=== PATIENT | female | born 1990 | race Caucasian/White ===

== ENCOUNTER 2022-11-23 09:26 | Outpatient (CLI) | payer BC, SELFPAY | END 2022-11-23 09:27 | disposition home or self-care (01) | LOC: LAB 09:30 | PROVIDERS: Obstetrics & Gynecology; Visit Provider Registered Nurse | DX: O46.90 Antepartum hemorrhage, unspecified, unspecified trimester (principal) | CPT/HCPCS: 36415; 84702; 86850; 86900; 86901 ==

== ENCOUNTER 2022-11-25 09:18 | Outpatient (CLI) | payer BC, SELFPAY | END 2022-11-25 09:19 | disposition home or self-care (01) | PROVIDERS: Visit Provider Obstetrics & Gynecology | DX: Z34.90 Encounter for supervision of normal pregnancy, unspecified, unspecified trimester (principal) | CPT/HCPCS: 84702 ==

== ENCOUNTER 2022-11-29 13:56 | Outpatient (CLI) | payer BC, SELFPAY ==
--- NOTE | 2022-11-29 14:00 | CRLHL7_ITS ---
For Patients: As a result of the Cures Act, medical imaging exams and procedure reports are released immediately into your electronic medical record. You may view this report before your referring provider. If you have questions, please contact your health care provider. INDICATION: BLEEDING IN 1ST TRIMESTER COMPARISON: None. TECHNIQUE: Real-time justin-scale imaging of the pelvis was performed. FINDINGS: Sonographic imaging demonstrates a single living intrauterine gestation. The embryo demonstrates a regular cardiac rate measuring 120 beats per minute. The embryo`s crown-rump length measurement of 0.6 cm corresponds to a gestational age of 6 weeks 3 days with a sonographic due date of 07/21/2022. There is a normal-appearing yolk sac. There are no gross abnormalities noted within the embryo at this early state of development. The gestational sac has a normal appearance. There is no evidence of a perigestational hemorrhage. The amount of fluid within the sac appears appropriate for gestational age. The cervix is closed. The myometrium appears normal. The ovaries are of normal size. There are no suspicious fluid collections noted in the cul-de-sac. IMPRESSION: Normal first trimester OB ultrasound exam. Gestational age calculated at 6 weeks 3 days with a sonographic due date of 07/21/2022. Dictated by Baldo Espinal MD @ 11/29/2022 2:56:21 PM (Electronically Signed)
== END 2022-11-29 13:57 | disposition home or self-care (01) ==
LOC: US 13:56
PROVIDERS: Visit Provider Obstetrics & Gynecology
DX: O20.9 Hemorrhage in early pregnancy, unspecified (principal); Z3A.01 Less than 8 weeks gestation of pregnancy
CPT/HCPCS: 76817; 87491; 87591

== ENCOUNTER 2022-12-17 14:47 | Outpatient (CLI) | payer BC, SELFPAY ==
--- NOTE | 2022-12-17 15:00 | CRLHL7_ITS ---
For Patients: As a result of the Century Cures Act, medical imaging exams and procedure reports are released immediately into your electronic medical record. You may view this report before your referring provider. If you have questions, please contact your health care provider. INDICATION: First trimester scan, establish dates. COMPARISON: 11/29/2022 TECHNIQUE: Real-time justin-scale imaging of the pelvis was performed. FINDINGS: Sonographic imaging demonstrates a single living intrauterine gestation. The embryo demonstrates a regular cardiac rate measuring 173 beats per minute. The embryo`s crown-rump length measurement of 2.2 cm corresponds to a gestational age of 9 weeks 0 days with a sonographic due date of 07/22/2023. There is a normal-appearing yolk sac. There are no gross abnormalities noted within the embryo at this early state of development. The gestational sac has a normal appearance. There is no evidence of a perigestational hemorrhage. The amount of fluid within the sac appears appropriate for gestational age. The cervix is closed. The myometrium appears normal. Corpus luteal cyst right ovary. Left ovary not visualized. There are no suspicious fluid collections noted in the cul-de-sac. IMPRESSION: Normal first trimester OB ultrasound exam. Gestational age calculated at 9 weeks 0 days with a sonographic due date of 07/22/2023. Dictated by Baldo Espinal MD @ 12/17/2022 3:59:45 PM (Electronically Signed)
== END 2022-12-17 14:48 | disposition home or self-care (01) ==
LOC: US 14:48
PROVIDERS: Visit Provider Registered Nurse
DX: Z34.91 Encounter for supervision of normal pregnancy, unspecified, first trimester (principal); Z3A.09 9 weeks gestation of pregnancy
CPT/HCPCS: 76817; 86703; 86803; 86850; 86900; 86901; 87086; 87340

== ENCOUNTER 2022-12-17 16:11 | Outpatient (CLI) | payer BC, SELFPAY | END 2022-12-17 16:12 | disposition home or self-care (01) | PROVIDERS: Visit Provider Registered Nurse | DX: Z34.91 Encounter for supervision of normal pregnancy, unspecified, first trimester (principal); Z3A.09 9 weeks gestation of pregnancy | CPT/HCPCS: 86592; 86703; 86762; 86787; 86803; 86850; 86900; 86901; 87086; 87340 ==

== ENCOUNTER 2023-01-11 18:14 | Emergency (ER) | payer BC, SELFPAY ==
[2023-01-11 18:17] VITALS: BP 144/78; PULSE 97; RESP 18; TEMP 36.2; O2SAT 100; BMI 28.1
--- NOTE | 2023-01-11 18:33 | CRLHL7_ITS ---
For Patients: As a result of the Cures Act, medical imaging exams and procedure reports are released immediately into your electronic medical record. You may view this report before your referring provider. If you have questions, please contact your health care provider. INDICATION: Vaginal bleeding at 12 weeks in . TECHNIQUE: Transabdominal obstetrical ultrasound. COMPARISON: December 17, 2022. FINDINGS: There is a single living intrauterine with a heart rate of 154 beats per minute and crown-rump length of 7.1 cm which would correspond to a 13 week 2 day gestation with a sonographic due date of July 17, 2023. The yolk sac is not seen. The gestational sac is within normal limits. The ovaries are unremarkable with the right measuring 3.4 x 1.8 x 2.8 cm and the left measuring 3.1 x 1.1 x 1.9 cm. No adnexal mass. No free pelvic fluid. IMPRESSION: Single living intrauterine with a crown-rump length corresponding to a 13 week 2 day gestation with a sonographic due date of July 17, 2023. No perigestational hemorrhage identified. Dictated by Lalito Pike MD @ 01/11/2023 8:31:49 PM (Electronically Signed)
--- NOTE | 2023-01-11 18:49 | ED_ITS ---
HPI - General Adult General Date Seen: 01/11/23 Chief complaint: Vaginal Bleeding Stated complaint: 12 weeks and bleeding heavily Time Seen by Provider: 01/11/23 18:31 History of Present Illness HPI narrative: This is a generally healthy 32-year-old female who is G1, P0. She is currently 12 weeks 5 days based on LMP and previous ultrasounds. She had experienced a little bit of vaginal spotting several weeks ago and had ultrasound in follow-up of that that showed a live viable IUP. She follows with the [facility] for care. She is on vitamins. She has no other recent illnesses. No long-term medical conditions. No other medications. No medication allergies. Shortly prior to arrival she began to notice a little bit of vaginal spotting with blood on the toilet paper when she wiped. About an hour ago she began to have more heavy vaginal bleeding that is reddish, like a.. She is not having any pelvic cramping. No lightheadedness or dizziness. No fever or chills. She knows that her blood type is B positive. Quantitative hCG on 11/25 was [id number]. On 12/17 Hemoglobin was normal at 13.4. Recent labs appear normal. Related Data Home Medications Medication Instructions Recorded Confirmed docosahexaenoic acid 200 mg mg PO 12/17/22 12/17/22 capsule ( DHA) fexofenadine 180 mg tablet 180 mg PO Q24H 12/17/22 12/17/22 (Roya Allergy) loratadine 10 mg tablet (Claritin) 10 mg PO QDAY 12/17/22 12/17/22 Allergies Allergy/AdvReac Type Severity Reaction Status Date / Time No Known Drug Allergies Allergy Verified 01/11/23 18:20 Review of Systems Narrative: Negative except as above PFSH PFSH Medical History History of abnormal cervical Pap smear ?Z87.42 - Personal history of other diseases of the female genital tract (ICD-10) Surgical History H/O wisdom tooth extraction ?K08.409 - Partial loss of teeth, unspecified cause, unspecified class (ICD- 10) Social History (Reviewed 12/18/22 @ 08:48 by BON Aquino Smoking Status: Never smoker How often do you have a drink containing alcohol: never AUDIT-C Alcohol total score: 0 Non-prescribed substance use: denies use Little interest or pleasure in doing things: several days Feeling down, depressed, or hopeless: not at all Exam Narrative: Exam Narrative: Constitutional: Appears well-developed and well-nourished. Alert. Conversant. Non toxic. HENT: Head: Atraumatic. Nose: Nose normal. Mouth/Throat: Oral mucosa is clear and moist. no trismus. Pharynx normal. Tonsils symmetric. No tonsillar enlargement, erythema, or exudate. Eyes: Conjunctivae normal. EOM normal. Pupils equal, round, and reactive to light. No scleral icterus. Neck: Normal range of motion. Neck supple. No tracheal deviation present. Cardiovascular: Normal rate, regular rhythm. Skin is pink, warm, well perfused, with normal cap refill. Abdominal: Soft. Bowel sounds normal. No distension. No mass. No tenderness. No rebound. No guarding. Pelvic: Performed with female site leasing agent. Normal external genitalia. Normal vaginal mucosa. Cervix is closed. There is a little bit of blood in the vaginal vault but no active bleeding. No other cervical lesions. Bimanual exam deferred. Musculoskeletal: RUE: Normal range of motion. No tenderness. No deformity LUE: Normal range of motion. No tenderness. No deformity RLE: Normal range of motion. No edema. No tenderness. No deformity LLE: Normal range of motion. No edema. No tenderness. No deformity Neurological: Alert and oriented to person, place, and time. Normal strength. CN II-VII intact. No sensory deficit. GCS eye subscore is 4. GCS verbal subscore is 5. GCS motor subscore is 6. Normal coordination Skin: Skin is warm and dry. No rash noted. No pallor. Normal capillary refill. Psychiatric: Normal mood. Tearful and worried but otherwise polite and appropriate. Const: Vital Signs, click to edit/add: Vital Signs - 24 hr 01/11/23 18:17 Temperature 97.1 F L Pulse Rate [Left P ulse Oximeter] 97 Respiratory Rate 18 Blood Pressure [Ri ght Upper Arm] 144/78 H Pulse Oximetry 100 Oxygen Delivery Me thod Room Air Course Vital Signs Vital signs: Initial Vital Signs Temperature 97.1 F L 01/11/23 18:17 Temperature Source Temporal Artery Scan 01/11/23 18:17 Pulse Rate 97 01/11/23 18:17 Respiratory Rate 18 01/11/23 18:17 Blood Pressure 144/78 H 01/11/23 18:17 Blood Pressure Mean 100 01/11/23 18:17 Blood Pressure Position Sitting 01/11/23 18:17 Pulse Oximetry 100 01/11/23 18:17 Oxygen Delivery Method Room Air 01/11/23 18:17 Vital Signs Temperature 97.1 F L 01/11/23 18:17 Pulse Rate 97 01/11/23 18:17 Respiratory Rate 18 01/11/23 18:17 Blood Pressure 144/78 H 01/11/23 18:17 Pulse Oximetry 100 01/11/23 18:17 Oxygen Delivery Method Room Air 01/11/23 18:17 Temperature 97.1 F L 01/11/23 18:17 Pulse Rate 97 01/11/23 18:17 Respiratory Rate 18 01/11/23 18:17 Blood Pressure 144/78 H 01/11/23 18:17 Pulse Oximetry 100 01/11/23 18:17 Oxygen Delivery Method Room Air 01/11/23 18:17 Medical Decision Making MDM Narrative Medical decision making narrative: This female patient presents for evaluation of vaginal bleeding that began this evening. She is currently 12 weeks, 5 days based on LMP and previous ultrasound. Other than her bleeding she is having no other concerning symptoms such as dysuria, pelvic pain, fever, flank pain. She has already had previous ultrasound to confirm an IUP.. I considered a broad differential including ectopic , ovarian cyst, UTI, pyelonephritis, subchorionic hemorrhage, uterine bleeding, active miscarriage, constipation, etc. Non gynecologic causes considered included , appendicitis, cholecystitis, volvulus, intraabdominal abscess, among others. In this patient, there are no signs of serious etiologies of vaginal bleeding. The workup here suggests threatened miscarriage. Preliminary ultrasound report from the javascript web developer is that there is no evidence for subchorionic hemorrhage. There is a live IUP with a heart rate of 154 beats per minute, which is apparently growing according to dates. At this point, patient is hemodynamically stable, hemoglobin is reassuring, and bleeding is not predicted to become life threatening. Patient's Rh is known to be B positive. Discussed with my partner, Dr. Rod. He will follow-up on the patient's quantitative hCG level and pending formal ultrasound report. If there is any alarming finding based on that he will disposition accordingly. Otherwise, tentativep chio is home, close follow-up with OB, threatened miscarriage precautions, and return to ED for worsening pain, heavy vaginal bleeding (more than 1 pad soaked every hour). Questions were answered. Lab Data Labs: Lab Results 01/11/23 Range/Units 18:55 WBC 9.62 (4.50-11.00) K/uL RBC 4.58 (4.00-5.20) m/uL Hgb 14.1 (12.0-16.0) gm/dL Hct 41.1 (33.0-51.0) % MCV 90 (80-100) fL MCH 31 (26-34) pg MCHC 34 (32-36) gm/dL RDW Coeff of Scott 11.5 (11.5-15.5) % Plt Count 289 (140-440) K/uL Neut % (Auto) 67.1 (42.0-72.0) % Lymph % (Auto) 23.0 (20-44) % [place] % (Auto) 8.7 (0.0-11.0) % Eos % (Auto) 0.7 (0.0-7.0) % Baso % (Auto) 0.4 (0.0-3.0) % Neut # (Auto) 6.45 (1.7-7.0) K/uL Lymph # (Auto) 2.21 (0.90-2.90) K/uL [place] # (Auto) 0.80 (0.00-0.90) K/UL Eos # (Auto) 0.07 (0.00-0.50) K/uL Baso # (Auto) 0.04 (0.00-0.30) K/uL Abs Immat Gran (auto) 0.01 (0.00-0.30) K/uL Imm/Tot Granulo (auto) 0.1 % Sodium 138 (135-149) mmol/L Potassium 3.7 (3.6-5.1) mmol/L Chloride 105 (96-114) mmol/L Carbon Dioxide 22 (20-32) mmol/L Anion Gap 11 (7-15) mEq/L BUN 7 (5-24) mg/dL Creatinine 0.6 (0.5-1.5) mg/dL Estimated Creat Clear 142.87 Estimated GFR 121 ml/min Glucose 101 (60-115) mg/dL Calcium 9.3 (8.4-10.6) mg/dL Discharge Plan Discharge Clinical Impression: , threatened Patient Disposition: Home, Self-Care Condition: Stable Instructions: Threatened Miscarriage (ED) Additional Instructions: Please follow-up with your provider by Friday for a recheck and repeat ultrasound. If you have any worsening bleeding, pelvic cramping, worsening pain, lightheadedness or dizziness, fever, or any other concerns please come back to the ER right away to be rechecked. Prescriptions: No Action DHA 200 mg capsule PO loratadine [Claritin] 10 mg tablet 10 mg PO QDAY fexofenadine [Roya Allergy] 180 mg tablet 180 mg PO Q24H Follow Up/Referrals: Provider,Not a Local [Primary Care Provider] - Stand Alone Forms: [id number] Info Instructions
[2023-01-11 19:04] LABS: Basophils Absolute Auto 0.04 K/uL (0.00-0.30); Basophils Percent Auto 0.4 % (0.0-3.0); Eosinophils Absolute Auto 0.07 K/uL (0.00-0.50); Eosinophils Percent Auto 0.7 % (0.0-7.0); Hematocrit 41.1 % (33.0-51.0); Hemoglobin* 14.1 gm/dL (12.0-16.0); Immature Granulocytes Abs Auto 0.01 K/uL (0.00-0.30); Immature Granulocytes Pct Auto 0.1 %; Lymphocytes Absolute Auto 2.21 K/uL (0.90-2.90); Mean Corpuscular HGB Conc 34 gm/dL (32-36); Mean Corpuscular Hemoglobin 31 pg (26-34); Mean Corpuscular Volume 90 fL (80-100); Monocytes Percent Auto 8.7 % (0.0-11.0); Neutrophils Absolute Auto 6.45 K/uL (1.7-7.0); Neutrophils Percent Auto 67.1 % (42.0-72.0); Platelet Count* 289 K/uL (140-440); RDW Coefficient of Variation % 11.5 % (11.5-15.5); Red Blood Count 4.58 m/uL (4.00-5.20); White Blood Count* 9.62 K/uL (4.50-11.00)
[2023-01-11 19:14] LABS: Slide Review Reflex No
[2023-01-11 19:17] LABS: Chloride* 105 mmol/L (96-114); Sodium* 138 mmol/L (135-149)
[2023-01-11 19:18] LABS: Potassium* 3.7 mmol/L (3.6-5.1)
[2023-01-11 19:20] LABS: Anion Gap 11 mEq/L (7-15); Carbon Dioxide* 22 mmol/L (20-32); Creatinine* 0.6 mg/dL (0.5-1.5); Est. Creatinine Clearance* 142.87; Estimated Glomerular Filt Rate 121 ml/min
[2023-01-11 19:21] LABS: Blood Urea Nitrogen* 7 mg/dL (5-24); Calcium* 9.3 mg/dL (8.4-10.6); Glucose* 101 mg/dL (60-115)
== END 2023-01-11 20:48 | disposition home or self-care (01) ==
PROVIDERS: Emergency Medicine; Emergency Provider Student in an Organized Health Care Education/Training Program
DX: O20.0 Threatened abortion (principal)
CPT/HCPCS: 36415; 76801; 80048; 84702; 85025; 99283; 99284

== ENCOUNTER 2023-05-02 08:28 | Outpatient (REF) | payer BC, SELFPAY | END 2023-05-02 08:29 | disposition home or self-care (01) | LOC: NFLDREF 08:28 | PROVIDERS: Visit Provider Obstetrics & Gynecology | DX: Z34.90 Encounter for supervision of normal pregnancy, unspecified, unspecified trimester (principal) | CPT/HCPCS: 86592 ==

== ENCOUNTER 2023-05-21 12:20 | Outpatient (CLI) | payer BC, SELFPAY ==
[2023-05-21 12:48] VITALS: BP 135/63; PULSE 95; TEMP 37.3
[2023-05-21 13:24] LABS: Appearance Urine Clear (Clear); Bilirubin Urine Negative (Negative); Blood Urine 2+ (Negative); Color Urine Yellow (Yellow); Glucose Urine Negative (Negative); Ketones Urine Negative (Negative); Leukocyte Esterase Urine Negative (Negative); Nitrite Urine Negative (Negative); Protein Urine Negative (Negative); Specific Gravity Urine 1.015 (1.000-1.030); Urobilinogen Urine 0.2 (0.2-1.0); pH Urine 7.5 (5.0-8.5)
[2023-05-21 13:53] LABS: Amorphous Sediment Urine Moderate; Bacteria Urine Moderate; RBC Urine 0-2 (0-2); Squamous Epithelial Cell Urine Moderate (None-Few)
--- NOTE | 2023-05-21 15:17 | PC.OBNST ---
NST Note NST Note Start: 05/21/23 12:40 Freq: ONCE Status: Active Protocol: Document 05/21/23 15:14 HCR (Rec: 05/21/23 15:15 HCR [id number]) NST Note 1 Para (# of births) 0 EDC 07/22/23 Gestational Age In Weeks & Days 31 Weeks & 1 Days High Risk Factors Advanced Maternal Age Patient Presented with Complaint(s) of Vaginal bleeding Other Complaints From OB Assessment: Dark brown and light pink spotting after organizing house and lifting heavier things the past two days. She noticed it at approx 10am today 05/21. when wiping a few times, had a little on her underwear before coming in . Not large enough amount that any went in toilet. Denies cramping, does not believe her water has broken. She does report an increase in frequency of urination compared to the already more frequent urination of . She does not report elevated temperatures recently and does not feel warm. Reactive Yes Appropriate for Gestational Age Yes NAV Walls, RN Date 05/21/23 Reactive Yes Appropriate for Gestational Age Yes NAV Saez RNC Date 05/21/23 OB NST charge Yes Complete NST Note via Write Note Yes The provider's electronic signature indicates the NST is reactive/appropriate for gestational age. *Note to provider: If an addendum is required, open the patient's chart and click on the note under the Nurse/Allied Health tab.
--- NOTE | 2023-05-21 16:36 | PM.OBLDTN ---
OB - Triage/Final Diagnosis Visit Information Time Seen by Provider: 13:00 Date Seen: 05/21/23 Narrative: The patient is a 33 year old 1 para 0 at 31 weeks gestation by LMP, who presents with vaginal spotting. course is complicated by advanced maternal age and history of vaginal bleeding in early . Glenda notes onset of vaginal spotting this morning, of no clear etiology. She notes pink to brown discharge, no steve vaginal bleeding. She denies any abdominal pain or contractions, no leaking of fluids. Endorses active movement. She notes that she has essentially been on pelvic rest all of her , given concern for bleeding since she had this throughout the 1st trimester. She was very active with lifting over the weekend. She otherwise is feeling in her normal state of health, review of systems negative. Evaluation Laboratory results: Laboratory Tests 05/21/23 Range/Units 12:52 Urine Color Yellow (Yellow) Urine Appearance Clear (Clear) Urine pH 7.5 (5.0-8.5) Ur Specific [place] 1.015 (1.000-1.030) Urine Protein Negative (Negative) Urine Glucose (UA) Negative (Negative) Urine Ketones Negative (Negative) Urine Blood 2+ A (Negative) Urine Nitrite Negative (Negative) Urine Bilirubin Negative (Negative) Urine Urobilinogen 0.2 (0.2-1.0) Ur Leukocyte Esterase Negative (Negative) Urine RBC 0-2 (0-2) Urine WBC 2-5 (0-5) Ur Squamous Epith Cells Moderate A (None-Few) Amorphous Sediment Moderate A (None) Urine Bacteria Moderate A (None) Vital signs: Vital Signs - 24 hr 05/21/23 12:48 Temperature 99.2 F Pulse Rate 95 Blood Pressure 135/63 Comments: General: No acute distress Psych: Alert and oriented x 3, full affect HEENT: Normocephalic, atraumatic Abdomen: Soft, nontender and nondistended. Cephalic presentation by Diomedes's. Uterus palpates soft, no contractions. heart tones: Patient was monitored for over 1 hour in triage, reassuring status throughout this time. heart rate baseline of 140 beats per minute, moderate variability and accelerations present. [place]: No regular uterine contractions. Rare contraction on toco, asymptomatic. Pelvic exam: Mons normal, clitoris normal, urethral meatus normal. Labia minora and majora normal in appearance bilaterally. Perineum dry. Vaginal introitus normal appearance. Sterile speculum exam performed, scant dark red blood noted in the vaginal vault. Cervix is easily visualized, where 5mm prolapsing polyp noted at the external os. This was gently probed with a Q-tip, tiny ooze of bright red blood appreciated. No active bleeding. Cervix appears closed and non laboring by visual inspection. Physiologic vaginal discharge noted. Final Diagnosis (1) Vaginal spotting: Status: Acute Problem details: Ms. Delgado is a 33yo at 31w1d GA seen in Ob triage for vaginal spotting. course complicated by AMA and history of first trimester bleeding. Glenda notes onset of scant vaginal spotting/brown discharge this morning, no inciting factors (recent intercourse/trauma) aside from increased physical activity over the weekend. She was monitored in triage for over 1 hour, where status was entirely reassuring and tocometer revealed no evidence of regular contractions or uterine irritability. Uterus palpates soft, patient denies any contractions as well. Sterile speculum exam was notable for scant old blood in the vagina with a 5mm prolapsing cervical polyp. Cervix appears closed and non-laboring. Tiny ooze noted with palpation of the polyp with sterile Q-tip, no active bleeding. We reviewed the likely etiology of her vaginal spotting is cervical/polyp irritation from increased activity. No evidence of labor or placental abruption on evaluation today. Previous level 2 US reviewed with no evidence of previa. Discussed expectant management of the polyp in so as to not incite further cervical irritation or vaginal bleeding. That said, it may complicate her clinical picture moving forward in terms of evaluation of labor or abruption moving forward. We discussed she's likely to have ongoing vaginal spotting over the coming days given her known polyp and this may occur with intercourse or activity in the future. Encouraged low threshold to present to care with any bright red vaginal bleeding, contractions/abdominal pain or decreased movement. Strict return precautions reinforced. Patient expressed understanding and is comfortable with plan. (2) Third trimester bleeding, antepartum: Status: Acute
== END 2023-05-21 14:55 | disposition home or self-care (01) ==
LOC: OB OUT 12:21 → OB 12:41
PROVIDERS: Visit Provider Obstetrics & Gynecology
DX: O46.93 Antepartum hemorrhage, unspecified, third trimester (principal); Z3A.31 31 weeks gestation of pregnancy
CPT/HCPCS: 59025; 81003; 81015; 87086; G0463

== ENCOUNTER 2023-06-27 09:02 | Outpatient (CLI) | payer BC, SELFPAY ==
[2023-06-28 14:09] LABS: Strep B DNA Probe Negative (Negative)
[2023-06-28 14:19] LABS: Strep B Susceptibility Needed? No
== END 2023-06-27 09:03 | disposition home or self-care (01) ==
LOC: NFLDREF 09:03
PROVIDERS: PCP Obstetrics & Gynecology; Visit Provider Obstetrics & Gynecology
DX: Z34.02 Encounter for supervision of normal first pregnancy, second trimester (principal)
CPT/HCPCS: 87081; 87653

== ENCOUNTER 2023-07-21 00:12 | Inpatient (IN) | payer BC, SELFPAY ==
[2023-07-20 23:40] VITALS: BP 122/69; PULSE 88
[2023-07-21] VITALS (92 sets, daily range): BP systolic 106–158; BP diastolic 60–90; PULSE 68–130; RESP 14–18; TEMP 36.4–37.1; O2SAT 96–100; BMI 32.1
[2023-07-21] MEDS: ONDANSETRON ODT 4 MG TAB PO (00:50)
[2023-07-21 01:03] LABS: Amnisure Rom* POSITIVE
[2023-07-21] MEDS: LACTATED RINGERS 1000 ML 1,000 ML 1200 ML IV (01:15)
[2023-07-21] MEDS: ROPIVACAINE 0.2 % PF 10 ML INJ 20 MG EPIDURAL (02:00)
[2023-07-21] MEDS: LACTATED RINGERS 1000 ML 1,000 ML 500 ML IV (02:08)
[2023-07-21] MEDS: ROPIVACAINE 0.2% 100 ml 100 ML 12 MG EPIDURAL ×2 (02:09→08:54)
[2023-07-21] MEDS: LIDOCAINE 2% (PF) 5 ML VIAL EPIDURAL (02:11)
--- NOTE | 2023-07-21 02:13 | PM.ANBPRC ---
[facility] Medical History History of abnormal cervical Pap smear ?Z87.42 - Personal history of other diseases of the female genital tract (ICD-10) Surgical History H/O wisdom tooth extraction ?K08.409 - Partial loss of teeth, unspecified cause, unspecified class (ICD-10) Social History Smoking Status: Never smoker How often do you have a drink containing alcohol: never AUDIT-C Alcohol total score: 0 Non-prescribed substance use: denies use Little interest or pleasure in doing things: not at all Feeling down, depressed, or hopeless: not at all Meds Home Medications and Allergies Home Medications Medication Instructions Recorded Confirmed Type docosahexaenoic acid 200 mg mg PO 12/17/22 07/11/23 History capsule ( DHA) aspirin 81 mg tablet,delayed 81 mg PO QDAY 01/28/23 07/20/23 History release famotidine 20 mg tablet (Pepcid) 20 mg PO QDAY 05/02/23 07/20/23 History Allergies Allergy/AdvReac Type Severity Reaction Status Date / Time No Known Drug Allergies Allergy Verified 07/20/23 13:24 Results Labs Labs: Laboratory Results - last 24 hr 07/21/23 00:56 Membrane Rupture POSITIVE Vital Signs Vital Signs: Last Vital Signs Temp 97.9 F 07/21/23 01:27 Pulse 81 07/21/23 02:10 Resp 18 07/21/23 01:27 BP 136/77 07/21/23 02:10 Pulse Ox 100 07/21/23 02:04 Weight: 101.605 kg Height: 177.8 cm Anesthesia Procedures Epidural Insertion Patient Location: OB Start Time: 01:40 Stop Time: 02:13 Start Date: 07/21/23 Stop Date: 07/21/23 Reason for Block: procedure for pain Patient Position: sitting Performed By: Oscar Sabillon Preanesthetic Checklist: IV checked, risks and benefits discussed, surgical consent, monitors and equipment checked, pre-op evaluation, timeout performed and anesthesia consent Prep: chlorhexidine gluconate Monitoring: blood pressure monitoring, continuous pulse oximetry and heart rate Approach: midline Vertebral Space: lumbar (1-5) Epidural Technique: DOUGIE air Needle Type: Tuohy needle Injection Technique: continuous catheter Needle gauge: 17 Needle Length (cm): 10 cm Needle Insertion Depth (cm): 7 Catheter Gauge: 19 Catheter Type: multi-orifice Catheter at skin depth (cm): 13 Test Dose Result: negative and lidocaine 1.5% with epinephrine 1 to 200,000
[2023-07-21] MEDS: CALCIUM CARBONATE 500 MG CHEW PO (07:32)
[2023-07-21] MEDS: LACTATED RINGERS 1000 ML 1,000 ML 125 ML IV (07:53)
[2023-07-21] MEDS: fentaNYL 100 MCG/2 ML inj EPIDURAL (09:03)
[2023-07-21 09:19] LABS: Hematocrit 40.1 % (33.0-51.0); Hemoglobin* 13.8 gm/dL (12.0-16.0); Mean Corpuscular HGB Conc 34 gm/dL (32-36); Mean Corpuscular Hemoglobin 32 pg (26-34); Mean Corpuscular Volume 94 fL (80-100); Platelet Count* 175 K/uL (140-440); Red Blood Count 4.26 m/uL (4.00-5.20); White Blood Count* 15.76 K/uL (4.50-11.00)
[2023-07-21 09:21] LABS: Slide Review Reflex No
[2023-07-21 09:45] LABS: Alanine Aminotransferase* 14 U/L (4-35); Aspartate Amino Transferase* 19 U/L (12-35); Blood Urea Nitrogen* 11 mg/dL (5-24); Creatinine* 0.8 mg/dL (0.5-1.5); Est. Creatinine Clearance* 106.14; Estimated Glomerular Filt Rate 98 ml/min
[2023-07-21 10:00] LABS: Total Protein Urine 126 mg/dL
[2023-07-21 10:02] LABS: Creatinine Urine 74.4 mg/dL
[2023-07-21] MEDS: OXYTOCIN 30 unit/500 ML in NS 30 UNIT/500 ML BAG IVPB (13:03)
--- NOTE | 2023-07-21 13:42 | P.OBHP_ITS ---
OB - H&P: HPI Labor/Induction History of Present Illness Time Seen by Provider: 08:30 Date Seen: 07/21/23 Chief Complaint: The patient is a 33 year old 1 para 0 at 39.6 weeks gestation by LMP and consistent with ultrasound, who presents with SROM at 0008. Her full H&P was done on 06/27/[address] Kelly. Please see that for further details. Patient was gemini on her own and making cervical change. Thus, her labor was managed expectantly overnight. This a.m., her cervix is 8/90/0 at 7:50 a.m. She is s/p epidural. When I came to assess her, she was on her hands and knees breathing though contraction pain. She reports that she is no longer has good pain control and is feeling everything. Chief complaint: Maternity Narrative: Glenda Delgado is a 33 year old female Specific Issues/Plans G 1 P 0 : [place] H&P done on 06/27/[address] Kelly 1. AMA * NIPT: negative. Boy! [facility] after her grandfather * Level 2 US: normal: no previa, posterior placenta, 3v cord, normal amniotic fluid, no anomalies. * Considering monitoring starting at 36 weeks, reviewed this is not a strong recommendation per ACOG but optional 2. Ongoing vaginal bleeding into early 2nd trimester. Multiple ultrasounds w/ no EZRA. Infection testing neg. 3. Cervical polyp (5mm) identified after spotting at 31w1d - persistent on spec exam at 39w3d to rule out rupture, asymptomatic - Consider polypectomy PP COVID: Vaccinated and boosted x1. Flu:02/12/2023 RSV: TDAP: 05/14/23 Meds Home Medications and Allergies Home Medications Medication Instructions Recorded Confirmed Type docosahexaenoic acid 200 mg 200 mg PO DAILY 12/17/22 07/21/23 History capsule ( DHA) aspirin 81 mg tablet,delayed 81 mg PO QDAY 01/28/23 07/20/23 History release famotidine 20 mg tablet (Pepcid) 20 mg PO QDAY 05/02/23 07/20/23 History Allergies Allergy/AdvReac Type Severity Reaction Status Date / Time No Known Drug Allergies Allergy Verified 07/20/23 13:24 OB - H&P: Exam Physical Exam: Vital signs: Temp Pulse Resp BP Pulse Ox 98.6 F 90 16 126/79 100 07/21/23 12:42 07/21/23 13:28 07/21/23 05:32 07/21/23 13:28 07/21/23 02:04 Narrative: Physical exam: General: In labor pain. On hands and knees Psych: Alert and oriented x3, full affect HEENT: Normocephalic, atraumatic Lungs: Breathing hard through contractions. Neuro: No focal deficit. Mentating appropriately Pelvic exam: Pending epidural assessment OB - Results Labs Labs: Short CBC 07/21/23 Range/Units 09:10 WBC 15.76 H (4.50-11.00) K/uL Hgb 13.8 (12.0-16.0) gm/dL Hct 40.1 (33.0-51.0) % Plt Count 175 (140-440) K/uL BMP 07/21/23 09:10 BUN 11 Creatinine 0.8 Liver Function 07/21/23 Range/Units 09:10 AST 19 (12-35) U/L ALT 14 (4-35) U/L OB - Problem Based A/P Additional Plan (1) : Status: Acute (2) Spontaneous onset of labor: Status: Acute Plan - anesthesia called to assess epidural - will reassess her cervix after improved pain control - expected management for now
--- NOTE | 2023-07-21 17:13 | W.PM.VAGDEL1 ---
Procedure Procedure Done: [facility] Procedure Details: Glenda is a 33 year-old G 1 P0 admitted on 07/21/23 at 39.6 weeks gestation for ruptured membranes. Cervical exam on admission was 2 cm/50 % effaced/-2 station with membranes ruptured in vertex presentation. She was diagnosed with pre-eclampsia at 0930 due to mild range in blood pressure and a protein creatinine ratio of 1.6. SROM occurred at 0008 on 07/21/23 with clear fluid. Labor Analgesia: Epidural Pitocin: Yes Labor onset: 07/21/23 at 0310 Complete: 07/21/23 at 1410 Pushin07/21/23 at 1412 heart tones during second stage were II due to variable during pushing, with spontaneous resolution in between contractions. Moderate variability and accels. At 1527 a viable male delivered in vertex OA presentation via spontaneous vaginal delivery. Infant was placed on maternal abdomen. Cord was clamped and cut after a 30-60 second delay. Nose and mouth were bulb suctioned. weight: Pending. 8 at 1 minute and 8 at 5 minutes. Shoulder dystocia: No. Nuchal cord: No . Placenta delivered spontaneously at 1531 with a 3 vessel cord, appears to be marginal or velamentous cord insertion as the cord avulsed with a large portion of the membrane following, but no placenta. The placenta was sitting on the pelvic floor. Glenda was as to push, and the placenta delivered with pushing. Bedside ultrasound showed very thin, homogenous endometrial lining, less than 2 cm in the transverse and sagittal view. Complications: Cord avulsion. Mother and were stable after delivery. Laceration(s): 2nd degree and small left sidewall, repaired with 0-vicryl. Estimated blood loss: 150 mL. Sponge and needles counts are correct. Mother and were stable at the time of this note. Glenda is planning on .
[2023-07-21] MEDS: IBUPROFEN 600 MG TABLET PO (18:44)
[2023-07-22 00:54] VITALS: BP 116/74; PULSE 90; RESP 16; O2SAT 96
[2023-07-22 03:55] VITALS: BP 121/77; PULSE 83; RESP 16; TEMP 36.6; O2SAT 97
[2023-07-22 07:03] LABS: Hemoglobin* 11.7 gm/dL (12.0-16.0)
--- NOTE | 2023-07-22 08:25 | P.OBPN_ITS ---
Documented by User: Camacho Azul 07/22/23 10:41 OB - PN:Subj Subjective Time Seen by Provider: 08:25 Date Seen: 07/22/23 Patient comments OB post-: no complaints and pain well controlled [place] status: doing well [place] feeding status: exclusively Narrative: The patient feels well.? The pain is well controlled with current medications.? She has no new complaints.? Urinary output is adequate and she is voiding without difficulty.? Has a good appetite, is tolerating a general diet, is passing flatus, and no bowel movement.? Has small amount of rubra lochia.? She is ambulating well. She is and reports it is going well.? OB - PN: Obj Exam Physical Exam: Vital signs: Temp Pulse Resp BP Pulse Ox O2 Del Method 97.9 F 83 16 121/77 97 Room Air 07/22/23 03:55 07/22/23 03:55 07/22/23 03:55 07/22/23 03:55 07/22/23 03:55 07/22/23 03:55 Narrative: GENERAL APPEARANCE:?normal affect, alert, no distress MOOD:? appropriate CHEST:? clear to auscultation HEART:? regular rate and rhythm ABDOMEN:? soft, non-tender the uterine fundus is firm at Umbilicus, Midline and is appropriate for the stage of recovery. PERINEUM:? Perineal Laceration well approximated, no drainage EXTREMITIES:?normal Constitutional: Constitutional: no acute distress OB - PN: Obj Data Labs Labs: Laboratory Results - last 24 hr 07/21/23 07/21/23 07/22/23 09:10 09:30 06:40 WBC 15.76 H RBC 4.26 Hgb 13.8 11.7 L Hct 40.1 MCV 94 MCH 32 MCHC 34 Plt Count 175 BUN 11 Creatinine 0.8 Estimated Creat Clear 106.14 Estimated GFR 98 AST 19 ALT 14 Urine Creatinine 74.4 Protein/Creatinin Ratio 1.60 H Urine Total Protein 126 Blood Type B Positive Antibody Screen NEGATIVE OB - PN: A/P Delivery Assessment and Plan (1) care and examination of lactating mother: Status: Acute (2) Normal vaginal delivery: Status: Acute (3) Lactating mother: Status: Acute Plan Day 1 Doing well Anticipate Discharge to home tomorrow Plan Plan: routine care Documented by User: Kiley Benito CNM 07/22/23 10:57 OB - PN: A/P Delivery Assessment and Plan (1) care and examination of lactating mother: Status: Acute (2) Normal vaginal delivery: Status: Acute (3) Lactating mother: Status: Acute Plan Day 1 Doing well Lactating mother. May see if desired. Anticipate Discharge to home tomorrow I,?Kiley Benito APRN, CNM, was present for visit and have reviewed and agree with documentation by the Certified Nurse Midwifery Student.
[2023-07-22 09:43] VITALS: BP 110/70; PULSE 83; RESP 12; TEMP 36.6
--- NOTE | 2023-07-22 11:08 | PM.ANPOST ---
Post Anesthesia Note Post Anesthesia Note Patient seen: Inpatient Respiratory Status: adequate Cardiovascular Status: adequate Mental Status: baseline Pain: adequate Temp: baseline Anesthetic awareness: N/A Complications: none Follow care: none
[2023-07-22] MEDS: IBUPROFEN 600 MG TABLET PO (12:50)
[2023-07-22] MEDS: DOCUSATE SODIUM 100 MG CAPSULE PO (12:50)
[2023-07-22 12:51] VITALS: BP 112/69; RESP 16; TEMP 36.6
[2023-07-22 20:00] VITALS: BP 118/77; PULSE 92; RESP 14; TEMP 36.7; O2SAT 98
[2023-07-23 00:38] VITALS: BP 115/74; PULSE 89; RESP 15; TEMP 36.6; O2SAT 97
[2023-07-23 04:35] VITALS: BP 107/70; PULSE 94; RESP 18; TEMP 36.9; O2SAT 97
[2023-07-23] MEDS: IBUPROFEN 600 MG TABLET PO ×2 (06:01→13:31)
--- NOTE | 2023-07-23 08:06 | PM.OBDSVD1 ---
DS: Providers Provider Date Seen: 07/23/23 Date of admission: 07/21/23 00:12 Primary care physician: Not a Local Provider Admitting Clinician: Bella Kelly MD Attending Physician on discharge: Bella Kelly MD Date of Discharge: 07/23/23 DS: Diagnosis Discharge Diagnosis (1) Lactating mother: Status: Acute (2) Normal vaginal delivery: Status: Acute Exam Narrative: Exam Narrative: GENERAL APPEARANCE:? normal affect, alert, no distress? MOOD:? appropriate? CHEST:? clear to auscultation and percussion? HEART:? regular rate and rhythm? ABDOMEN:? soft, non-tender the uterine fundus is U/2 and is appropriate for the stage of recovery.? PERINEUM:? mild edema of the perineum, there is a 2nd degree laceration that is healing well.? EXTREMITIES:? normal and no edema? Const: Vital Signs, click to edit/add: Vital Signs - 24 hr 07/22/23 09:43 07/22/23 12:51 07/22/23 20:00 Temperature 97.9 F 97.8 F 98.1 F Pulse Rate [Blood Pressure Cuff] 83 92 Respiratory Rate 12 16 14 Blood Pressure [Ri ght Arm] 110/70 112/69 118/77 Pulse Oximetry 98 Oxygen Delivery Me thod Room Air 07/23/23 00:38 07/23/23 04:35 Temperature 97.9 F 98.5 F Pulse Rate [Blood Pressure Cuff] 89 94 Respiratory Rate 15 18 Blood Pressure [Ri ght Arm] 115/74 107/70 Pulse Oximetry 97 97 Oxygen Delivery Me thod Room Air Room Air Documenting provider has reviewed patient's vital signs: yes OB - DS: Summary Hospital Course Hospital Course: The patient is a 33 year old G 1 P 1 at 39.6 weeks gestation that was admitted to the Center on 07/21/23 for []. She had an uncomplicated vaginal delivery. She delivered a viable male . She is breast feeding and feels that it is going well but baby has been cluster feeding overnight. the patient has done well. The patient feels well.? The pain is well controlled with current medications.? She has no new complaints.? Urinary output is adequate and she is voiding without difficulty.? Has a good appetite, is tolerating a general diet, is passing flatus, and has not had a bowel movement.? Has small amount of rubra lochia.? She is ambulating well.? Peripartum Data delivery method: Vaginal Laceration description: Perineal - 2nd Degree Episiotomy description: None complications: none [place] Gender: Male Infant Discharge Plan: Home Status at Discharge Functional status at discharge: independent ambulation Overall status at discharge: patient is progressing back to baseline Time Spent with Patient Time attestation: Total time spent providing and/or coordinating discharge services: Discharge Plan Discharge Disposition: Home, Self-Care Date of Admission: 07/21/23 00:12 Attending Provider on Discharge: Chrissie Rosa Primary Care Provider: Provider,Not a Local Condition: Stable Anticipated Discharge Date/Time: 07/23/23 10:00 Discharge Medications: New docusate sodium 100 mg Capsule 100 mg PO DAILY Qty: 90 0RF Rx Instructions: Take 1-2 tablets daily as needed for constipation. ibuprofen 600 mg Tablet 600 mg PO Q6H PRNQty: 30 0RF Continued DHA 200 mg capsule 200 mg PO DAILY Discontinued famotidine [Pepcid] 20 mg tablet 20 mg PO QDAY aspirin 81 mg tablet,delayed release (DR/EC) 81 mg PO QDAY Discharge Orders: Discharge Order (Routine); Ordered 07/23/23 Ordered By: Chrissie Rosa Patient Education: OB Vaginal/Breast Feeding Additional Instructions: Discharge instructions were reviewed with the patient including signs and symptoms of infection and home going medications.? Lifting Restrictions: 20 pounds for 6? weeks? ?? Do not drive while taking narcotic pain meds.? Off Work or School for 6 weeks.? ?? Symptoms to report to doctor:? -Bleeding that saturates more than one pad per hour? -Passing clots larger than the size of a golf ball? -Pain not relieved by prescribed medication? -Fever above 100.4 degrees Fahrenheit? -A foul vaginal odor? -Difficulty in emotions, mood and functions? -Thoughts of hurting yourself and/or ? -Painful, reddened area in your breast? -Any drainage, redness or tenderness in your IV/epidural site? -Severe headache that doesn't improve after taking medications? -Changes in vision, including temporary loss of vision, blurred vision, and/or light sensitivity? -Upper abdominal pain (usually under ribs on the right side)? -Decrease in urination or painful, frequent urinating? -Chest pain? -Shortness of breath? -Tenderness or pain with redness and/swelling in the calf(s) of your leg? ?? Follow Up in clinic in 2 and 6 weeks.? ?? consultation services are available to all mothers and babies for the first year after delivery.? To make an appointment, please call [phone].? Activity Level: Activity as Tolerated Discharge Diet: Regular Follow Up Appointments: Provider,Not a Local [Primary Care Provider] - [facility] [Provider Group] Forms: MyHealth Info Instructions
[2023-07-23] MEDS: ACETAMINOPHEN 500 MG TABLET 1000 MG PO (09:16)
[2023-07-23] MEDS: DOCUSATE SODIUM 100 MG CAPSULE PO (09:17)
[2023-07-23 09:19] VITALS: BP 123/70; PULSE 82; RESP 18; TEMP 36.6; O2SAT 97
[2023-07-23 17:05] VITALS: BP 121/75; PULSE 85; RESP 16; TEMP 36.6; O2SAT 100
== END 2023-07-23 18:40 | disposition home or self-care (01) | DRG 560 ==
LOC: OB OUT 00:13 → OB 00:13
PROVIDERS: Obstetrics & Gynecology; Admitting Provider Obstetrics & Gynecology; Visit Provider Obstetrics & Gynecology
DX: O14.04 Mild to moderate pre-eclampsia, complicating childbirth (principal); O70.1 Second degree perineal laceration during delivery; Z3A.39 39 weeks gestation of pregnancy; Z37.0 Single live birth; O34.43 Maternal care for other abnormalities of cervix, third trimester; N84.1 Polyp of cervix uteri
CPT/HCPCS: 01967; 36415; 59025; 76815; 82565; 82570; 84112; 84156; 84450; 84460; 84520; 85018; 85027; 86592; 86850; 86900; 86901; 88307; G0463; A9270; J2371; J2795; J3010; J7120